=== PATIENT | female | born 1985 | race American Indian/Alaskan Native ===

== ENCOUNTER 2017-01-05 05:35 | Emergency (ER) | payer SELFPAY ==
[2017-01-05 06:11] LABS: Basophils % (Auto) 1.1 % (0.0-1.8); Eosinophils % (Auto) 4.5 % (0.0-4.3); Hematocrit 37.6 % (30.3-42.9); Hemoglobin 12.4 gm/dl (10.1-14.3); Mean Corpuscular HGB Conc 33 % (30-34); Mean Corpuscular Hemoglobin 29 pg (28-32); Mean Corpuscular Volume 88 fl (79-97); Platelet Count 192 K/mm3 (140-440); Red Blood Count 4.28 M/mm3 (3.65-5.03); Red Cell Distribution Width 14.1 % (13.2-15.2)
[2017-01-05 06:37] LABS: Anion Gap 21 mmol/L; BUN/Creatinine Ratio 11.42; Blood Urea Nitrogen 8 mg/dL (7-17); Carbon Dioxide 24 mmol/L (22-30); Chloride 105.6 mmol/L (98-107); Glucose 109 mg/dL (65-100); Potassium 4.2 mmol/L (3.6-5.0); Sodium 146 mmol/L (137-145)
--- NOTE | 2017-01-05 07:32 | Emergency Department Report ---
HPI - General Chief Complaint: Nausea/Vomiting/Diarrhea Time Seen by Provider: 01/05/17 07:17 - HPI HPI: She is a 31-year-old female who presents to the ED complaining of vomiting times one today. Patient states yesterday she had been drinking some alcohol mixed drinks and after eating some macaroni and cheese and chicken she started soon after that. States she has mid epigastric abdominal pain that started this morning after several episodes of vomiting. Patient also generalized headache. Patient describes epigastric pain as burning in sensation with no radiation elsewhere. She denies fevers/chills/diarrhea/shortness of breath/chest pain/medication/ dizziness ED Past Medical Hx - Past Medical History Previous Medical History?: No - Surgical History Past Surgical History?: No - Social History Smoking Status: Never Smoker Substance Use Type: None - Medications Home Medications: Home Medications Medication Instructions Recorded Confirmed Last Taken Type Ciprofloxacin HCl [Ciprofloxacin 500 mg PO Q12HR #14 tab 01/05/17 Unknown Rx TAB] Mag Hydrox/Al Hydrox/Simeth 10 ml PO QID #1 bottle 01/05/17 Unknown Rx [Maalox Advanced Suspension] Ondansetron [Zofran ODT TAB] 8 mg PO Q8HR #30 tab 01/05/17 Unknown Rx ED Review of Systems ROS: Stated complaint: POSS FOOD POISONING Other details as noted in HPI Constitutional: denies: chills, fever Eyes: denies: eye pain, eye discharge, vision change ENT: denies: ear pain, throat pain Respiratory: denies: cough, shortness of breath, wheezing Cardiovascular: denies: chest pain, palpitations Endocrine: no symptoms reported Gastrointestinal: abdominal pain, nausea, vomiting. denies: diarrhea, constipation, hematemesis, melena, hematochezia Genitourinary: denies: urgency, dysuria, frequency, hematuria, discharge Musculoskeletal: denies: back pain, joint swelling, arthralgia, myalgia Skin: denies: rash, lesions Neurological: denies: headache, weakness, numbness, paresthesias, confusion, abnormal gait, vertigo Psychiatric: denies: anxiety, depression, suicidal thoughts Hematological/Lymphatic: denies: easy bleeding, easy bruising, swollen glands Physical Exam - Physical Exam Physical Exam: GENERAL: Alert and oriented x3, no apparent distress, Normal Gait, atraumatic. HEAD: Head is normocephalic and a-traumatic. EYES: Extra ocular muscles are intact. Pupils are equal, round, and reactive to light and accommodation. EARS: symetrical, atraumatic, gross auditory nml bilaterally. NOSE: Nose symetrical, Nontender,Nares appeared normal. MOUTH:Mouth is well hydrated and without lesions. Patent airways. NECK: Supple. Non edematous, No carotid bruits. No lymphadenopathy or thyromegaly. LUNGS: Symetrical with respiration, No wheezing, no rales or crackles, CTAB. HEART: S1, S2 present, regular rate and rhythm without murmur, no rubs, no gallops. ABDOMEN: No organomegaly was noted,Positive bowel sounds, soft, and non- distended. . Nontender to palpation on all Quadrants, NO CVA tenderness. EXTREMITIES/MUSCULOSKELETAL: No cyanosis, clubbing, rash, lesions or edema. Full ROM bilaterally. UE/LE Pulses 2+ bilaterally. NEUROLOGIC: No focal Deficit, Cranial nerves II through XII are grossly intact. No loss of sensation, SKIN: Warm and dry, No lesions, No ulceration or induration present. ED Medical Decision Making - Lab Data Result diagrams: 01/05/17 05:57 01/05/17 05:57 - Medical Decision Making 31-year-old female presents with acute vomiting/UTI. ED course: CBC ordered, CMP ordered, urinalysis, serum ordered. CBC within normal limits, hypernatremia. CMP within normal limits. Lipase/ amylase normal Urinalysis shows positive bacteria. test negative. Patient received 16 mg of Zofran ODT and GI cocktail. Patient able to tolerate PO challenge No active vomiting in ED. Discussed findings with patient. Discussed the patient will follow up with primary care physician. Discussed increase hydration to 10 glasses per day. This is a medication of Zofran and Maalox and ciprofloxacin. Discussed symptoms of alcohol ingestion with patient. Discussed alcohol induced gastritis. Patient's abdomen was nontender during examination Discussed the patient take medication as prescribed. Vital signs stable. Patient is in no acute respiratory distress. Critical care attestation.: If time is entered above; I have spent that time in minutes in the direct care of this critically ill patient, excluding procedure time. ED Disposition Clinical Impression: Acute vomiting UTI (urinary tract infection) Qualifiers: Urinary tract infection type: acute cystitis Hematuria presence: with hematuria Qualified Code(s): N30.01 - Acute cystitis with hematuria Disposition: DISCHARGED TO HOME OR SELFCARE Is pt being admited?: No Does the pt Need Aspirin: No Condition: Stable Instructions: Gastritis (ED), Urinary Tract Infection in Women (ED), Acute Nausea and Vomiting (ED) Prescriptions: Ciprofloxacin HCl [Ciprofloxacin TAB] 500 mg PO Q12HR #14 tab Mag Hydrox/Al Hydrox/Simeth [Maalox Advanced Suspension] 10 ml PO QID #1 bottle Ondansetron [Zofran ODT TAB] 8 mg PO Q8HR #30 tab Referrals: PRIMARY CAREMD [Primary Care Provider] - 3-5 Days EDDIE BOWLING MD [Referring] - 3-5 Days KASSANDRA LUNA MD [Referring] - 3-[address] [facility] [Outside] - 3-5 Days [facility] [Outside] - 3-5 Days [facility] [Outside] - 3-5 Days [facility] [Outside] - 3-5 Days Forms: Work/School Release Form(ED) Time of Disposition: 11:09
[2017-01-05] MEDS ORDERED: ZOFRAN ODT PO ONE (07:38)
[2017-01-05] MEDS ORDERED: ZOFRAN ODT ONE (07:39)
[2017-01-05] MEDS ORDERED: ALUM-MAG HYDROX-SIMETH 200-200-20MG/5ML PO ONE (07:39)
[2017-01-05] MEDS ORDERED: LIDOCAINE VISCOUS 2% PO ONE (07:39)
[2017-01-05 10:09] LABS: Amylase 78 units/L (27-131); Lipase 21 units/L (13-60)
[2017-01-05 10:26] LABS: Bacteria,Urine 1+ /HPF (Negative); Bilirubin,Urine NEG (Negative); Blood,Urine NEG (Negative); Ketones,Urine TR mg/dL (Negative); Leukocyte Esterase,Urine NEG (Negative); Mucus,Urine 3+ /HPF; Nitrite,Urine POS (Negative)
[2017-01-05 11:25] VITALS: BP 118/80
== END 2017-01-05 11:26 | disposition home or self-care (01) ==
LOC: ED 05:35
DX: N30.01 Acute cystitis with hematuria (principal); R11.10 Vomiting, unspecified
CPT/HCPCS: 36415; 80048; 81001; 82150; 83690; 84703; 85025; 99283; G0480; 80320; Q0162